=== PATIENT | male | born 1985 | race Caucasian/White ===

== ENCOUNTER → 2017-09-26 | Outpatient (CLI) | payer BC ==
--- NOTE | 2017-09-26 13:44 | RAD ---
Exam: Lumbar spine, AP and lateral views History: 32-year-old male with lower back pain. Comparison: None Findings: Five [id number]-[id number] lumbar type vertebral bodies are seen. Vertebral body alignment is anatomic with no evidence of offset on the lateral view. There is mild narrowing of the L5-S1 disc space. The othe r lumbar disc spaces are maintained. No acute bony abnormality is seen on this exam. Impression: Mild degenerative disc disease at the L5-S1 level. Reported By:
== END | disposition home or self-care (01) | DRG 552 ==
LOC: RAD 12:55
PROVIDERS: ATTEND Nurse Practitioner Family
DX: M54.5 Low back pain (principal); M54.17 Radiculopathy, lumbosacral region; M51.37 Other intervertebral disc degeneration, lumbosacral region
CPT/HCPCS: 72100